=== PATIENT | female | born 1945 | race Caucasian/White ===

== ENCOUNTER → 2018-03-26 | Outpatient (CLI) | payer MEDICARE, OTHER ==
--- NOTE | ~2018-03-26 | SLEEP ---
[address] [address] SLEEP STUDY REPORT Name: MRAY KENT Sesar Room: [facility]#: [id number] Admission: 03/26/18 Attend Phys: Patti Bowles RN Discharge: Date of : 43 Report #: [id number] THIS REPORT FOR: //name// CC: Mitch Bowles This study has been reviewed in its entirety by a board certified sleep specialist DATE OF SERVICE: 03/28/2018 SLEEP STUDY SUBJECTIVE: The patient is a 72-year-old who weighs 255 pounds and is 69 inches tall with a BMI of 37.7. The patient's Vaughan score was 4. The patient underwent home sleep study performed at [facility]. Total recording time was 433 minutes. During the night study, the patient had 36 obstructive apneas, no central apneas, no mixed apneas and 35 hypopneas. The patient's apnea-hypopnea index was 9.8 per hour. Supine sleep was not observed. Nocturnal oximetry study revealed an average oxygen saturation of 89% with lowest of 76%; 271 minutes were spent in an oxygen saturation of less than 88%. Mean heart rate was 72 beats per minute. IMPRESSION: 1. Mild sleep apnea-hypopnea syndrome at an AHI of 9.8 per hour. 2. Moderate nocturnal hypoxia secondary to obstructive sleep apnea. RECOMMENDATIONS: 1. The patient has mild sleep apnea, but was noted to have moderate nocturnal hypoxia. I would recommend treating the patient's sleep apnea with either a trial of oral appliance as recommended by the dentist versus a trial of CPAP titration. 2. Weight loss is strongly advised. 3. Avoid [employer] depressants. 4. Cautioned regarding driving until symptoms of sleep apnea resolve with the above recommendations. By: [id number] Richardson MD /nt
== END ==
LOC: M.SLEEPLAB 10:50
DX: G47.33 Obstructive sleep apnea (adult) (pediatric) (principal); R09.02 Hypoxemia; R53.83 Other fatigue; R29.818 Other symptoms and signs involving the nervous system